=== PATIENT | male | born 2000 | race Caucasian/White ===

== ENCOUNTER 2018-12-23 06:27 | Emergency (ER) | payer BC ==
[2018-12-23 06:39] VITALS: BP 146/81; PULSE 98; RESP 18; TEMP 97.4
[2018-12-23] MEDS ORDERED: diphenhydrAMINE 50 MG/ML 1 ML VIAL IVP STA (07:01)
[2018-12-23] MEDS ORDERED: METOCLOPRAMIDE 5 MG/ML 2 ML VIAL IVP STA (07:01)
[2018-12-23] MEDS ORDERED: KETOROLAC 30 MG/ML 1 ML VIAL IVP STA (07:01)
[2018-12-23] MEDS ORDERED: SODIUM CHLORIDE 0.9% 1,000 ML IV STA (07:01)
--- NOTE | 2018-12-23 07:12 | ED ---
General Adult HPI - General Chief complaint: Headache Stated complaint: Headache, Vomiting Time Seen by Provider: 12/23/18 06:47 Source: patient, RN notes reviewed Mode of arrival: ambulatory Limitations: no limitations - History of Present Illness Initial comments: 18-year-old male with a past medical history of migraines presents to the emergency department for a chief complaint of headache 3 hours. Patient states he woke up this burning with a headache. States it is on the left side of his head and into his left eye. States it is sharp and aching in nature. States became nauseous and did vomit once at home. Patient states this feels exactly consistent with previous migraines. States that he was having very frequent weekly migraines like this about 2 months ago however they improved. Therefore he has not been taking his migraine medication as he thought this was diet controlled as he improved his diet. However today patient states he had another migraine and when he vomited wanted to be seen for therapeutic relief.Patient has no other complaints at this time including shortness of breath, chest pain, abdominal pain, or visual changes. - Related Data Home Medications Medication Instructions Recorded Confirmed No Known Home Medications 12/23/18 12/23/18 Allergies Allergy/AdvReac Type Severity Reaction Status Date / Time No Known Allergies Allergy Verified 12/23/18 07:53 Review of Systems ROS Statement: Those systems with pertinent positive or pertinent negative responses have been documented in the HPI. ROS Other: All systems not noted in ROS Statement are negative. Past Medical History Additional Past Medical History / Comment(s): migraine History of Any Multi-Drug Resistant Organisms: None Reported Past Surgical History: No Surgical Hx Reported Past Psychological History: Anxiety Smoking Status: Never smoker Past Alcohol Use History: None Reported Past Drug Use History: Marijuana General Exam Limitations: no limitations General appearance: alert, in no apparent distress Head exam: Present: atraumatic, normocephalic, normal inspection Eye exam: Present: normal appearance, PERRL, EOMI. Absent: scleral icterus, conjunctival injection, periorbital swelling ENT exam: Present: normal exam, mucous membranes moist Neck exam: Present: normal inspection, full ROM. Absent: tenderness, meningismus, lymphadenopathy Respiratory exam: Present: normal lung sounds bilaterally. Absent: respiratory distress, wheezes, rales, rhonchi, stridor Cardiovascular Exam: Present: regular rate, normal rhythm, normal heart sounds. Absent: systolic murmur, diastolic murmur, rubs, gallop, clicks Neurological exam: Present: alert, oriented X3, normal gait, other (GCS 15) Psychiatric exam: Present: normal affect, normal mood Course Vital Signs 12/23/18 06:34 Temperature 97.4 F L Pulse Rate 98 Respiratory 18 Rate Blood Pressure 146/81 O2 Sat by Pulse 100 Oximetry Medical Decision Making - Medical Decision Making 18-year-old male with a past medical history of migraines presents to the emergency department for a chief complaint of headache. Patient states is exactly consistent with migraines that she has had before. Describes it as a left-sided headache with nausea. No focal neuro deficits. Exam is unremarkable. Patient was given migraine cocktail and pain reduced from a 9 to a 0. Requesting discharge. Patient will follow up with primary care for refill on migraine medications and return if he has any worsening symptoms. Disposition Clinical Impression: Migraine headache Disposition: HOME SELF-CARE Condition: Good Instructions (If sedation given, give patient instructions): Acute Headache (ED) Additional Instructions: Please follow up with primary care in 1-2 days. Please return to the ER if you have any worsening symptoms. Is patient prescribed a controlled substance at d/c from ED?: No Referrals: Willy Bro MD [Primary Care Provider] - 1-2 days Time of Disposition: 08:02
== END 2018-12-23 08:15 | disposition home or self-care (01) ==
LOC: EC 06:27
DX: G43.909 Migraine, unspecified, not intractable, without status migrainosus (principal)
CPT/HCPCS: 99283; 96374; 96375 ×2; 96361; J1200; J2765; J1885

== ENCOUNTER 2020-09-13 07:05 | Emergency (ER) | payer BC ==
[2020-09-13 07:14] VITALS: PULSE 85; RESP 18
--- NOTE | 2020-09-13 07:47 | ED ---
General Adult HPI - General Chief complaint: ENT Stated complaint: Neck Swelling Time Seen by Provider: 09/13/20 07:18 Source: patient Mode of arrival: ambulatory - History of Present Illness Initial comments: 20-year-old male presents to the emergency room for a chief complaint of right- sided neck pain. Patient reports just got over a sore throat about 3 days ago. States that yesterday he started to have swelling and pain in the right side of the neck. Patient states it is throbbing. Patient denies any difficulty swallowing or breathing.Patient has no other complaints at this time including shortness of breath, chest pain, abdominal pain, nausea or vomiting, headache, or visual changes. - Related Data Home Medications Medication Instructions Recorded Confirmed Acetaminophen Tab [Tylenol Tab] 1,000 mg PO Q6HR PRN 09/13/20 09/13/20 Ibuprofen [Motrin Ib] 600 mg PO Q8H PRN 09/13/20 09/13/20 Allergies Allergy/AdvReac Type Severity Reaction Status Date / Time No Known Allergies Allergy Verified 09/13/20 08:07 Review of Systems ROS Statement: Those systems with pertinent positive or pertinent negative responses have been documented in the HPI. ROS Other: All systems not noted in ROS Statement are negative. Past Medical History Additional Past Medical History / Comment(s): migraine History of Any Multi-Drug Resistant Organisms: None Reported Past Surgical History: No Surgical Hx Reported Past Psychological History: Anxiety Smoking Status: Never smoker Past Alcohol Use History: Occasional Past Drug Use History: Marijuana General Exam General appearance: alert, in no apparent distress Head exam: Present: atraumatic, normocephalic, normal inspection Eye exam: Present: normal appearance, PERRL, EOMI. Absent: scleral icterus, conjunctival injection, periorbital swelling ENT exam: Present: normal exam, normal oropharynx (Uvula midline, no tonsillar states bilaterally.), mucous membranes moist, TM's normal bilaterally, normal external ear exam Neck exam: Present: normal inspection, full ROM, lymphadenopathy (Patient has mild right-sided submandibular lymphadenopathy that is tender in nature.). Absent: meningismus Respiratory exam: Present: normal lung sounds bilaterally. Absent: respiratory distress, wheezes, rales, rhonchi, stridor Cardiovascular Exam: Present: regular rate, normal rhythm, normal heart sounds. Absent: systolic murmur, diastolic murmur, rubs, gallop, clicks GI/Abdominal exam: Present: soft, normal bowel sounds. Absent: distended, tenderness, guarding, rebound, rigid Course Vital Signs 09/13/20 09/13/20 07:09 08:57 Temperature 98 F Pulse Rate 85 85 Respiratory 18 18 Rate Blood Pressure 128/72 143/93 O2 Sat by Pulse 100 100 Oximetry Medical Decision Making - Medical Decision Making Patient is well-appearing. Vitals are stable. No respiratory distress. No drooling or tripoding. Patient is not having any difficulty swallowing. Oropharynx appears patent. Uvula midline, no tonsillar exudates bilaterally. Patient was tested for coronavirus, mono, and strep, all of which were negative. Strep culture is pending. Recommend patient take Motrin and Tylenol for pain. He will follow-up with his doctor to ensure resolution. He will return here for any worsening symptoms. - Lab Data Lab Results 09/13/20 09/13/20 09/13/20 Range/Units 07:31 07:31 07:33 Coronavirus (PCR) Not Detected (Not Detectd) Heterophile Antibody Negative (Negative) Group A Strep Rapid Negative (Negative) Disposition Clinical Impression: Lymphadenopathy Disposition: HOME SELF-CARE Condition: Good Instructions (If sedation given, give patient instructions): Lymphadenopathy (ED) Additional Instructions: Please follow up with primary care. Return to the emergency room for any worsening symptoms. Is patient prescribed a controlled substance at d/c from ED?: No Referrals: Willy Bro MD [Primary Care Provider] - 1-2 days Time of Disposition: 08:36
[2020-09-13] MEDS ORDERED: IBUPROFEN 600 MG TAB PO STA (08:38)
[2020-09-13 09:02] VITALS: BP 143/93
[2020-09-13] MEDS ORDERED: ACET/COD 300 MG/30 MG STARTER PACK 6 TAB BTL PO STA (09:03)
[2020-09-13] MEDS ORDERED: KETOROLAC 15 MG/ML 1 ML VIAL IM STA (09:03)
[2020-09-13 09:16] VITALS: TEMP 98.6
== END 2020-09-13 09:15 | disposition home or self-care (01) ==
LOC: EC 07:05
DX: R59.1 Generalized enlarged lymph nodes (principal); Z79.1 Long term (current) use of non-steroidal anti-inflammatories (NSAID)
CPT/HCPCS: 36415; 86308; 87081; 87430; 87635; 99283; 96372; J1885